=== PATIENT | female | born 1950 | race Caucasian/White ===

== ENCOUNTER → 2018-02-11 | Outpatient (CLI) | payer MEDICARE, BC | END | disposition home or self-care (01) | LOC: HKI 13:08 | DX: M17.0 Bilateral primary osteoarthritis of knee (principal) | CPT/HCPCS: 73562; 73562-50 ==

== ENCOUNTER → 2018-02-18 | Outpatient (CLI) | payer MEDICARE, BC | END | disposition home or self-care (01) | LOC: HKI 09:51 | DX: M17.0 Bilateral primary osteoarthritis of knee (principal) | CPT/HCPCS: 20610 ==

== ENCOUNTER → 2018-02-25 | Outpatient (CLI) | payer MEDICARE, BC | END | disposition home or self-care (01) | LOC: HKI 09:54 | DX: M17.0 Bilateral primary osteoarthritis of knee (principal); M25.562 Pain in left knee; M25.561 Pain in right knee | CPT/HCPCS: 20610 ==

== ENCOUNTER → 2018-03-04 | Outpatient (CLI) | payer MEDICARE, BC | END | disposition home or self-care (01) | LOC: HKI 09:54 | DX: M17.0 Bilateral primary osteoarthritis of knee (principal) | CPT/HCPCS: 20610 ==

== ENCOUNTER → 2018-06-10 | Outpatient (CLI) | payer MEDICARE, BC | END | disposition home or self-care (01) | LOC: HKI 11:06 | DX: Z01.818 Encounter for other preprocedural examination (principal) | CPT/HCPCS: 87081; G0463 ==

== ENCOUNTER 2018-06-20 06:31 | Day surgery (SDC) | payer MEDICARE, BC ==
[2018-06-20] MEDS: TRANEXAMIC ACID 1,000 MG in NS 100 ML INTRA-OP X1 IVPB (06:00)
[2018-06-20] MEDS: TRANEXAMIC ACID 1,000 MG in NS 100 ML PRE-OP X1 IVPB (06:00)
[2018-06-20] MEDS: CEFAZOLIN 2 GM/50 ML (PMX) 50 ML IVPB (06:00)
[~2018-06-20 06:31] MED LIST: LACTATED RINGER'S 1,000 ML IV*
[2018-06-20] MEDS: ONDANSETRON 4 MG INJ IV ×3 (07:50→18:43)
[2018-06-20] MEDS: DEXAMETHASONE 4 MG/ML 1 ML INJ IV (07:57)
[2018-06-20] MEDS: LANSOPRAZOLE 30 MG CAP PO (07:57)
[2018-06-20] MEDS: ACETAMINOPHEN 1000MG/100ML IV 100 ML IVPB (07:57)
[2018-06-20] MEDS ORDERED: CEFAZOLIN 1 GM INJ (09:27)
[2018-06-20] MEDS ORDERED: PROPOFOL 100 ML ×2 (09:27→11:15)
[2018-06-20] MEDS ORDERED: ROPIVACAINE 0.5 % 30 ML VIAL (09:27)
[2018-06-20] MEDS ORDERED: FENTAnyl 50 MCG/ML VIAL (09:27)
[2018-06-20] MEDS ORDERED: MIDAZOLAM 1 MG/ML 2 ML INJ (09:27)
[2018-06-20] MEDS ORDERED: BUPIVACAINE 0.75%/DEXT (SPINAL) 2 ML INJ (09:30)
[2018-06-20] MEDS ORDERED: PHENYLephrine (100 MCG/ML) 5ML SYG ×2 (09:44→09:52)
[2018-06-20] MEDS: BACITRACIN 50000 UNITS INJ (10:02)
[2018-06-20] MEDS: POLYMYXIN B 500000 UNIT INJ (10:03)
[2018-06-20] MEDS ORDERED: MAGNESIUM SULFATE 1 GM/D5W 0 ML (10:18)
[2018-06-20] MEDS ORDERED: HETASTARCH 6% NACL 500 ML (10:26)
[2018-06-20] MEDS ORDERED: ONDANSETRON 4 MG INJ (10:29)
[2018-06-20] MEDS ORDERED: KETOROLAC 30 MG INJ (10:29)
[2018-06-20] MEDS ORDERED: DEXAMETHASONE 4 MG/ML 1 ML INJ (10:29)
[2018-06-20] MEDS ORDERED: METOCLOPRAMIDE 10 MG INJ (10:29)
[2018-06-20] MEDS ORDERED: HYDROmorphONE 0.5 MG/0.5 ML SYG IV ×2 (11:00)
[2018-06-20] MEDS ORDERED: hydrALAzine 20 MG INJ IV (11:00)
[2018-06-20] MEDS ORDERED: MEPERIDINE 25 MG INJ IV (11:00)
[2018-06-20] MEDS ORDERED: morphine 2 MG INJ IV ×2 (11:00)
[2018-06-20] MEDS ORDERED: FENTAnyl 50 MCG/ML VIAL IV ×3 (11:00)
[2018-06-20] MEDS ORDERED: ALBUMIN HUMAN 5% 250 ML IV (11:00)
[2018-06-20] MEDS ORDERED: ONDANSETRON 4 MG INJ IV ×2 (11:00)
[2018-06-20] MEDS ORDERED: NALBUPHINE HCL (10 MG/1 ML) INJ IV (11:00)
[2018-06-20] MEDS ORDERED: METOCLOPRAMIDE 10 MG INJ IV (11:00)
[2018-06-20] MEDS ORDERED: DIPHENHYDRAMINE 50 MG INJ IV ×2 (11:00)
[2018-06-20] MEDS ORDERED: HYDROmorphONE 1 MG/5 ML IV SYRINGE IV ×3 (11:00)
[2018-06-20] MEDS ORDERED: EPHEDrine SULFATE 50 MG/5 ML SYG IV (11:00)
[2018-06-20] MEDS ORDERED: OXYCODONE/ACETAMINOPHEN (5/325) TAB PO ×2 (11:00)
[2018-06-20] MEDS ORDERED: LABETALOL HCL 20MG INJ IV (11:00)
[2018-06-20] MEDS ORDERED: NALOXONE (0.4 MG/ML) INJ IV (11:00)
[2018-06-20] MEDS ORDERED: oxyCODONE 5 MG TAB PO (12:30)
[2018-06-20] MEDS: SOD CHLORIDE 0.9% 1,000 ML IV ×2 (12:30→13:58)
[2018-06-20] MEDS ORDERED: CEFAZOLIN 1 GM/50 ML (PMX) 50 ML IVPB (12:54)
[2018-06-20] MEDS: CEFAZOLIN 1 GM/50 ML (PMX) 50 ML IVPB ×2 (13:05→20:37)
[2018-06-20] MEDS: ASPIRIN 81 MG TAB PO (20:37)
[2018-06-21] MEDS: oxyCODONE 5 MG TAB PO ×5 (00:41→18:49)
[2018-06-21] MEDS: ONDANSETRON 4 MG INJ IV ×2 (00:41→06:14)
[2018-06-21] MEDS: SOD CHLORIDE 0.9% 1,000 ML IV ×2 (01:00→02:59)
[2018-06-21] MEDS: CEFAZOLIN 1 GM/50 ML (PMX) 50 ML IVPB (04:49)
[2018-06-21 05:11] LABS: ADD MAN DIFF? NO
[2018-06-21 05:18] LABS: WHITE BLOOD COUNT 16.8 10^3/ul (4.8-10.8)
[2018-06-21 05:18] LABS: BASOPHILS % 0.2 % (0.0-2.0); HEMATOCRIT 33.7 % (37.0-47.0); HEMOGLOBIN 11.1 g/dl (12.0-16.0); LYMPHOCYTES # 1.3 10^3/ul (0.8-2.9); LYMPHOCYTES % 7.4 % (15.0-51.0); MEAN CORPUSCULAR HEMOGLOBIN 31.1 pg (29.0-33.0); MEAN CORPUSCULAR HGB CONC 32.9 g/dl (32.0-37.0); MEAN CORPUSCULAR VOLUME 94.4 fl (82.0-101.0); MEAN PLATELET VOLUME 10.6 fl (7.4-10.4); MONOCYTE # 0.8 10^3/ul (0.3-0.9); MONOCYTES % 4.6 % (0.0-11.0); NEUTROPHIL # 14.7 10^3/ul (1.6-7.5); NEUTROPHILS % 87.1 % (39.0-77.0); PLATELET COUNT 209 10^3/UL (140-415); RED BLOOD COUNT 3.57 10^6/ul (4.20-5.40); RED CELL DISTRIBUTION WIDTH 12.9 % (11.5-14.5)
[2018-06-21 05:35] LABS: INR 1.01; PROTIME 13.4 Sec (11.9-14.9)
[2018-06-21 05:49] LABS: ANION GAP 11 (8-16); BLOOD UREA NITROGEN 18 mg/dl (7-20); CALCIUM 8.5 mg/dl (8.4-10.2); CARBON DIOXIDE 18 mmol/L (21-31); CHLORIDE 113 mmol/L (97-110); CREATININE 0.67 mg/dl (0.44-1.00); GLUCOSE 119 mg/dl (70-220); POTASSIUM 4.5 mmol/L (3.5-5.1); SODIUM 137 mmol/L (135-144)
[2018-06-21] MEDS: CELECOXIB 200 MG CAP PO (08:41)
[2018-06-21] MEDS: ASPIRIN 81 MG TAB PO ×2 (08:41→20:51)
[2018-06-22] MEDS: oxyCODONE 5 MG TAB PO ×2 (00:46→08:48)
[2018-06-22] MEDS: SENNA/DOCUSATE NA (8.6MG/50MG) TAB PO (00:46)
[2018-06-22] MEDS: SOD CHLORIDE 0.9% 1,000 ML IV (02:00)
[2018-06-22 06:12] LABS: ADD MAN DIFF? NO
[2018-06-22 06:24] LABS: BASOPHILS % 0.4 % (0.0-2.0); EOSINOPHILS # 0.1 10^3/ul (0.0-0.5); EOSINOPHILS % 0.7 % (0.0-7.0); HEMATOCRIT 31.2 % (37.0-47.0); HEMOGLOBIN 10.1 g/dl (12.0-16.0); LYMPHOCYTES % 27.8 % (15.0-51.0); MEAN CORPUSCULAR HEMOGLOBIN 30.1 pg (29.0-33.0); MEAN CORPUSCULAR HGB CONC 32.4 g/dl (32.0-37.0); MEAN CORPUSCULAR VOLUME 92.9 fl (82.0-101.0); MEAN PLATELET VOLUME 10.9 fl (7.4-10.4); MONOCYTE # 0.7 10^3/ul (0.3-0.9); MONOCYTES % 6.4 % (0.0-11.0); NEUTROPHIL # 6.9 10^3/ul (1.6-7.5); NEUTROPHILS % 64.1 % (39.0-77.0); PLATELET COUNT 184 10^3/UL (140-415); RED BLOOD COUNT 3.36 10^6/ul (4.20-5.40); RED CELL DISTRIBUTION WIDTH 13.7 % (11.5-14.5)
[2018-06-22 06:24] LABS: WHITE BLOOD COUNT 10.7 10^3/ul (4.8-10.8)
[2018-06-22 06:37] LABS: ANION GAP 7 (8-16); BLOOD UREA NITROGEN 20 mg/dl (7-20); CALCIUM 8.7 mg/dl (8.4-10.2); CARBON DIOXIDE 26 mmol/L (21-31); CHLORIDE 109 mmol/L (97-110); CREATININE 0.85 mg/dl (0.44-1.00); GLUCOSE 95 mg/dl (70-220); POTASSIUM 4.4 mmol/L (3.5-5.1); SODIUM 138 mmol/L (135-144)
[2018-06-22 06:39] LABS: INR 0.94; PROTIME 12.7 Sec (11.9-14.9)
[2018-06-22] MEDS: ASPIRIN 81 MG TAB PO (08:48)
[2018-06-22] MEDS: CELECOXIB 200 MG CAP PO (08:48)
[2018-06-22] MEDS ORDERED: ONDANSETRON 4 MG INJ (10:48)
[2018-06-22] MEDS: ONDANSETRON 4 MG INJ IV (10:55)
[2018-06-22] MEDS ORDERED: HYDROCODONE/APAP (5/325) TAB PO (11:00)
[2018-06-22] MEDS: HYDROCODONE/APAP (5/325) TAB PO (13:32)
== END 2018-06-22 17:30 | disposition home or self-care (01) ==
LOC: REC 06:31 → SDS 06-22 17:30 → MS1 13:30 → REC 13:30 → SDS 06:31 → MS1 13:30
DX: M17.11 Unilateral primary osteoarthritis, right knee (principal)
CPT/HCPCS: 27447; 73560; 80048; 85025; 85610; 86850; 86900; 86901; 87081; 88304; 88311; 97110; 97116; 97161; 97530

== ENCOUNTER → 2018-07-08 | Outpatient (CLI) | payer MEDICARE, BC | END | disposition home or self-care (01) | LOC: HKI 11:24 | DX: Z47.1 Aftercare following joint replacement surgery (principal); Z96.651 Presence of right artificial knee joint | CPT/HCPCS: 73560; 73560-RT ==

== ENCOUNTER → 2018-08-05 | Outpatient (CLI) | payer MEDICARE, BC | END | disposition home or self-care (01) | LOC: HKI 10:54 | DX: Z09 Encounter for follow-up examination after completed treatment for conditions other than malignant neoplasm (principal); Z96.651 Presence of right artificial knee joint | CPT/HCPCS: 73560; 73560-RT ==

== ENCOUNTER → 2018-09-16 | Outpatient (CLI) | payer MEDICARE, BC | END | disposition home or self-care (01) | LOC: HKI 09:21 | DX: Z47.1 Aftercare following joint replacement surgery (principal); Z96.651 Presence of right artificial knee joint | CPT/HCPCS: 73560; 73560-RT ==

== ENCOUNTER → 2018-10-07 | Outpatient (CLI) | payer MEDICARE, BC | END | disposition home or self-care (01) | LOC: HKI 09:28 | DX: Z09 Encounter for follow-up examination after completed treatment for conditions other than malignant neoplasm (principal); R22.41 Localized swelling, mass and lump, right lower limb | CPT/HCPCS: G0463 ==

== ENCOUNTER → 2018-12-02 | Outpatient (CLI) | payer MEDICARE, BC | END | disposition home or self-care (01) | LOC: HKI 10:53 | DX: M17.12 Unilateral primary osteoarthritis, left knee (principal); Z96.652 Presence of left artificial knee joint | CPT/HCPCS: 73560; 73560-RT; 73562-LT ==